=== PATIENT | female | born 1960 | race Caucasian/White ===

== ENCOUNTER 2016-09-22 06:43 | Outpatient (CLI) ==
[2016-03-04 11:30] VITALS: BMI 39.9
[2016-09-22 07:30] LABS: CREATININE 0.84 mg/dL (0.60-1.30)
--- NOTE | 2016-09-22 08:44 | CT ---
EXAM: CT abdomen pelvis with contrast HISTORY: Dilated aorta, right lower quadrant pain COMPARISON: None TECHNIQUE: CT abdomen pelvis performed with intravenous contrast. Coronal and sagittal reformatted images obtained FINDINGS: Please see separate report CT chest regarding findings in the lower chest. Motion artifac t degrades imaging of the upper abdomen. No free air. No acute abnormalities of the bones. Mild de generative change in the spine. Liver unremarkable. Gallbladder unremarkable. Pancreas unremarkab le. Spleen unremarkable. Adrenals unremarkable. Kidneys unremarkable. Aorta normal in caliber. Bladder unremarkable. Patient status post hysterectomy. Small fat-containing umbilical hernia. No lymphadenopathy or ascites. Stomach appears normal. No dilated loops small bowel. Appendix appea rs normal. Mild colonic diverticulosis. No inflammatory stranding identified in the abdomen or pel vis. IMPRESSION: 1. No acute inflammatory process identified in the abdomen or pelvis. 2. Mild colonic diverticulosis.
--- NOTE | 2016-09-22 08:45 | CT ---
EXAM: CT chest with contrast HISTORY: Dilated aorta with chest pain COMPARISON: CT abdomen pelvis same day TECHNIQUE: Serial axial images of the chest were obtained after 75 ml of Omnipaque IV contrast was administered. These were obtained from the lung apices to the upper abdomen. FINDINGS: The thyroid is normal. The ascending aorta measures 3.8 cm at the level of the pulmonary arteries. The pulmonary arteries are normal in size. There is no dissection or stenosis. The hear t is normal in size without pericardial effusion. There is no mediastinal, hilar or axillary pathol ogically enlarged lymph nodes. There is no pneumothorax or pleural effusion. There is no consolidation, nodule or mass. There is no abnormal ground-glass. The airways are patent. Soft tissues in the upper abdomen are better evaluated on same day CT abdomen pelvis. The osseous structures are unremarkable. IMPRESSION: 1. No acute cardiopulmonary process or consolidation. 2. The ascending aorta measures 3.8 cm with the remaining aorta unremarkable in appearance.
== END 2016-09-22 06:44 | disposition home or self-care (01) ==
LOC: RAD 06:43
PROVIDERS: ATTEND Internal Medicine
DX: I77.819 Aortic ectasia, unspecified site (principal)
CPT/HCPCS: 36415; 82565

== ENCOUNTER 2016-09-29 06:47 | Outpatient (CLI) ==
[2016-03-04 11:30] VITALS: BMI 39.9
--- NOTE | 2016-10-02 10:47 | ECHO2D ---
Date of Exam: 09/29/16 Ordering Physician: JOE HARRELL Reason for Echo: HTN, DILATED AORTA, SOB M-Mode Normal Adult Results LV Dimensions Normal Adult Results AoV Opening excursions >1.6 >1.6 LVEDD-base- 3.5-5.8 4.5 Ao root dimensions 2.0-3.7 4.0 LVESD-base- 3.1-4.6 L. Atrium dimensions 1.9-3.8 4.0 Post. Wall thickness 0.8-1.1 1.2 IV septum (thickness) 0.7-1.2 1.0 Post. Wall excursion 0.72-1.3 NORMAL Septal motion NORMAL Systolic motion R. Ventricular cavity 1.5-2.0 NORMAL LVEF 60% 60% Paradoxical septal wall motion NORMAL 2-D : MILDLY ENLARGED LEFT ATRIAL CAVITY--MILDLY DILATED AORTIC ROOT--NORMAL LEFT VENTRICULAR CONTRACTILITY--NORMAL VALVES, NO EFFUSION, NO THROMBUS M-MODE: MV: NORMAL AV: NORMAL TV: NORMAL PV: CHAMBER SIZE: ENLARGED LEFT ATRIAL CAVITY/ DILATED AORTIC ROOT WALL MOTION: NORMAL PERICARDIUM: NORMAL INTERPRETATION: 1. MILDLY ENLARGED LEFT ATRIAL CAVITY 2. MILDLY DILATED AORTIC ROOT 3. NORMAL VALVES 4. NORMAL LEFT VENTRICULAR CONTRACTILITY MTDD
== END 2016-09-29 06:48 | disposition home or self-care (01) ==
LOC: CAR 06:47
PROVIDERS: ATTEND Internal Medicine
DX: R06.02 Shortness of breath (principal); I10 Essential (primary) hypertension; I25.2 Old myocardial infarction; I77.819 Aortic ectasia, unspecified site

== ENCOUNTER 2016-10-03 07:02 | Outpatient (CLI) ==
[2016-03-04 11:30] VITALS: BMI 39.9
--- NOTE | 2016-10-04 11:30 | ECHOSTRESS ---
Date of Exam: 10/03/16 Ordering Physician: JOE HARRELL Reason for Echo: HX MN, DILATED AORTA, SOB, STRESS TEST--NO ISCHEMIA M-Mode Normal Adult Results LV Dimensions Normal Adult Results AoV Opening excursions >1.6 LVEDD-base- 3.5-5.8 Ao root dimensions 2.0-3.7 LVESD-base- 3.1-4.6 L. Atrium dimensions 1.9-3.8 Post. Wall thickness 0.8-1.1 IV septum (thickness) 0.7-1.2 Post. Wall excursion 0.72-1.3 Septal motion Systolic motion R. Ventricular cavity 1.5-2.0 LVEF 60% Paradoxical septal wall motion 2-D: NORMAL LEFT VENTRICULAR CONTRACTILITY--RESTING AND POST EXERCISE M-MODE: MV: AV: TV: PV: CHAMBER SIZE: WALL MOTION: NORMAL LEFT VENTRICULAR CONTRACTILITY--RESTING AND POST EXERCISE PERICARDIUM: INTERPRETATION: 1. NORMAL LEFT VENTRICULAR CONTRACTILITY--RESTING AND POST EXERCISE MTDD
--- NOTE | 2016-10-04 11:41 | STRESSECHO ---
Date of Test: 10/03/16 Reason for Exam: HX NV, HTN, DILATED AORTA, SOB Ordering Physician: JOE AHRRELL Physical Findings: S1, S2, NO S3 Resting EKG: SINUS RHYTHM/NO ACUTE CHANGES Target Heart Rate: 141/166 STAGE MPH/GRADE HEART RATE BPM BLOOD PRESSURE mmhg RHYTHM S-T SEGMENT +/- UP DOWN SYMPTOMS,COMMENTS At Rest 72 118/82 SR X NONE 1 1.7/10% 120 156/80 SR X NONE 2 2.5/12% 3 3.4/14% 4 4.2/16% 5 5.0/18% Immediately after 130 SR X NONE Durations of Exercise: 4:03 Maximum Heart Rate Reached: 130 Reason for Termination: SHORT OF BREATH 3 MINUTES POST EXERCISE: HR 80 BPM, BP 138/86 MMHG, +/-, INTERPRETATION: 98% OXYGEN SATURATION WITH EXERCISE ON ROOM AIR METS 7.0 1. NO EVIDENCE OF ISCHEMIA BY ST-T WAVE 2. NO CHEST PAIN OR CHEST DISCOMFORT 3. BLOOD PRESSURE RESPONSE NORMAL 4. NO ARRHYTHMIAS NORMAL LEFT VENTRICULAR CONTRACTILITY--RESTING AND POST EXERCISE MTDD
== END 2016-10-03 07:03 | disposition home or self-care (01) ==
LOC: CAR 07:02
PROVIDERS: ATTEND Internal Medicine
DX: I10 Essential (primary) hypertension (principal); R06.02 Shortness of breath; I25.2 Old myocardial infarction; I77.819 Aortic ectasia, unspecified site

== ENCOUNTER 2017-08-21 11:03 | Outpatient (CLI) ==
[2016-03-04 11:30] VITALS: BMI 39.9
--- NOTE | 2017-08-21 12:15 | US ---
EXAM: Left lower extremity venous Doppler History: Left leg pain. Technique: Multiple sonographic images through the left lower extremity were obtained. Color duplex Doppler was used to interrogate vascular flow. Findings: The left common femoral, greater saphenous, profunda, superficial femoral, popliteal, thelma vivienne, posterior tibial and anterior tibial veins demonstrate spontaneous flow with normal compression and normal augmentation. Impression: No sonographic evidence for deep venous thrombosis.
== END 2017-08-21 11:04 | disposition home or self-care (01) ==
LOC: RAD 11:03
PROVIDERS: ATTEND Internal Medicine
DX: Z12.31 Encounter for screening mammogram for malignant neoplasm of breast (principal); M79.605 Pain in left leg
CPT/HCPCS: 77067